=== PATIENT | female | born 1940 | race Caucasian/White ===

== ENCOUNTER → 2016-08-07 | Day surgery (SDC) | payer MEDICARE, BC ==
[~2016-08-07] MED LIST: Lactated Ringers 1,000 ML IV SCH; Propofol 200 MG/20 ML SDV IV ONE
[2016-08-07 10:31] VITALS: BP 146/83
--- NOTE | 2016-08-07 13:10 | OR ---
DATE OF OPERATION: 08/07/2016 PREOPERATIVE DIAGNOSIS: 1. RECURRENT GASTROESOPHAGEAL REFLUX DISEASE. 2. ABDOMINAL PAIN. POSTOPERATIVE DIAGNOSIS: 1. RECURRENT GASTROESOPHAGEAL REFLUX DISEASE. 2. ABDOMINAL PAIN. SURGEON: Lucian Harley MD PROCEDURE: 1. EGD WITH DANIEL. 2. FULL-LENGTH COLONOSCOPY. ANESTHESIA: PHONE TECHNICIAN due to chronic reflux, and anxiety. COMPLICATIONS: None. SPECIMEN: Antral DANIEL. FINDINGS: 1. Full-length EGD. 2. Recurrent hiatal hernia without esophagitis or Hamm's changes. 3. Full length colonoscopy. 4. Mild sigmoid diverticulosis. RECOMMENDATIONS: Medical follow up with Dr. Solano. INDICATIONS: The patient had a previous hiatal hernia repair. She apparently started to have some recurrent reflux and abdominal pain. Dr. Solano recommended upper and lower endoscopy. DESCRIPTION OF PROCEDURE: The patient was prepped and draped, placed in left lateral decubitus position. A lubricated Olympus gastroscope was inserted over a bit, and easily intubated in the esophagus without any complication. Esophageal lining was benign in its entire course. The Z-line was crisp at 38 cm. There was a recurrence of hiatal hernia, small at this time. No spontaneous reflux was seen. There was no distal esophagitis, stricturing, ulceration, or Hamm's changes. The scope was advanced into the stomach through the pylorus into the third portion of duodenum. The second and third portion of duodenum along with the duodenal bulb were unremarkable. The scope was brought back into the stomach and retroflexed. The upper fundus and cardia were unremarkable other than the hernia itself. Upon straightening thorough evaluation, the entire gastric lining was entertained. No signs of any peptic ulcer disease, polyp mass, or otherwise. A CLOtest was obtained. Air was suctioned from the stomach, and the scope was removed without complication. A lubricated Olympus colonoscope was then inserted and easily advanced to the cecum. Visualization of right and right lower quadrant along with palpation in the right lower quadrant was accomplished where we easily visualized the ileocecal valve. The bowel prep was adequate. Upon withdrawal of the scope, the entire colon was visualized adequately. There were no signs of any polyps, mass, ulceration, bleeding sites. No vascular abnormalities or signs of colitis. A few scattered diverticula in the mid sigmoid to the rectosigmoid area mild in severity. Rectal vault was unremarkable. Retroflexion showed no anal lesions. Air was then suctioned. Scope removed without complications. MARIFER/MOHIT /[id number]
== END ==
LOC: CC.SDS 08:34
PROVIDERS: ATTEND Family Medicine
DX: K57.30 Diverticulosis of large intestine without perforation or abscess without bleeding (principal); K44.9 Diaphragmatic hernia without obstruction or gangrene; Z88.2 Allergy status to sulfonamides
CPT/HCPCS: 00810; 43235; 45378; 87081; J2704; J7120

== ENCOUNTER 2021-04-24 06:36 | Emergency (ER) | payer MEDICARE, BC ==
[2021-04-24] MEDS ORDERED: GI Cocktail Oral Solution 30 ML PO ONE (07:38)
--- NOTE | 2021-04-24 07:38 | EDM.PDOC ---
ED HPI GENERAL MEDICAL PROBLEM - General Chief Complaint: General Stated Complaint: BOTTOM OF LUNGS HURT Time Seen by Provider: 04/24/21 07:20 Source of Information: Reports: Patient History Limitations: Reports: No Limitations - History of Present Illness INITIAL COMMENTS - FREE TEXT/NARRATIVE: This is an 80-year-old female patient that presents to the emergency department with onset of pressure b below bilateral breast area. States that she has had this type of pain before with a hernia. Also has complaints of a sore throat. Denies radiation of pain into the arms, neck, or back. States that she has been belching a lot this morning. States she is having regular stools with no noted black or bloody tinged. States that she is passing urine okay. Denies being short of breath, diaphoretic, or nauseated. States that she had a hiatal hernia repaired several years ago and then had a problem as it had ruptured, but this has not been a problem for several years now. The nurse says she called last night with an elevated blood pressure in the 140s systolic. Bilateral Lower Chest Pain Score (Numeric/FACES): 8 - Related Data Allergies Allergy/AdvReac Type Severity Reaction Status Date / Time Sulfa (Sulfonamide Allergy Hives Verified 08/07/16 09:01 Antibiotics) Home Meds: Home Meds Aspirin 325 mg PO BEDTIME 09/06/13 [History] Cholecalciferol (Vitamin D3) [Vitamin D3] 4,000 unit PO BEDTIME 09/06/13 [History] Losartan/Hydrochlorothiazide [Hyzaar 100-25] 1 tab PO DAILY 09/06/13 [History] Omeprazole 20 mg PO BID PRN 09/06/13 [History] Potassium Chloride [K-Tab ER] 20 meq PO BEDTIME 09/06/13 [History] Ubidecarenone [Co Q-10] 50 mg PO BEDTIME 09/06/13 [History] amLODIPine [Norvasc] 10 mg PO DAILY 09/06/13 [History] atorvaSTATin [Lipitor] 10 mg PO DAILY 09/06/13 [History] Docusate Sodium [Stool Softener] 100 mg PO BID 02/16/15 [History] Magnesium Oxide [Magnesium] 1 cap PO DAILY 04/21/16 [History] Mupirocin Cream [Bactroban Crm] 1 applic TOP TID 08/06/16 [History] Ranitidine [Zantac] 150 mg PO BEDTIME 08/06/16 [History] Sertraline [Zoloft] 0.5 tab PO ASDIRECTED 04/24/21 [History] Past Medical History Cardiovascular History: Reports: High Cholesterol, Hypertension Gastrointestinal History: Reports: Hiatal Hernia - Past Surgical History GI Surgical History: Reports: Cholecystectomy, EGD, Jeanette Fundoplication Female Surgical History: Reports: Section Social & Family History - Family History Family Medical History: No Pertinent Family History - Caffeine Use Caffeine Use: Reports: Coffee, Soda ED ROS GENERAL - Review of Systems Review Of Systems: See Below Constitutional: Reports: Chills ("Chills to legs"). Denies: Fever, Diaphoresis HEENT: Reports: Throat Pain Respiratory: Denies: Shortness of Breath, Wheezing, Cough Cardiovascular: Reports: Chest Pain (Chest pressure to bilateral lower chest) Endocrine: Reports: No Symptoms GI/Abdominal: Reports: Other ("Belching and burping"). Denies: Abdominal Pain, Black Stool, Bloody Stool, Constipation, Diarrhea, Decreased Appetite, Nausea, Vomiting : Reports: No Symptoms. Denies: Discharge, Dysuria, Flank Pain Musculoskeletal: Reports: No Symptoms Skin: Reports: No Symptoms Neurological: Reports: No Symptoms. Denies: Trouble Speaking Psychiatric: Reports: No Symptoms Hematologic/Lymphatic: Reports: No Symptoms Immunologic: Reports: No Symptoms ED EXAM, GENERAL - Physical Exam Exam: See Below Exam Limited By: No Limitations General Appearance: Alert, WD/WN, Anxious Ears: Normal External Exam, Hearing Grossly Normal Nose: Normal Inspection, Normal Mucosa, No Blood Throat/Mouth: Normal Inspection, Normal Gums, Normal Oropharynx, Normal Voice, No Airway Compromise Head: Atraumatic, Normocephalic Neck: Normal Inspection, Supple, Non-Tender Respiratory/Chest: No Respiratory Distress, Lungs Clear, Normal Breath Sounds Cardiovascular: Regular Rate, Rhythm, No Gallop, No Rub GI/Abdominal: Normal Bowel Sounds, Soft, Non-Tender, No Organomegaly, No Distention (Female) Exam: Deferred Rectal (Female) Exam: Deferred Extremities: Normal Inspection, No Pedal Edema Neurological: Alert, Oriented, Normal Cognition Psychiatric: Normal Affect, Normal Mood Skin Exam: Warm, Dry, Intact, No Rash Lymphatic: No Adenopathy #1 Interpretation EKG Date: 04/24/21 Time: 06:56 Rhythm: NSR [place]: Normal P-Wave: Present QRS: Normal ST-T: Normal QT: Normal Course - Orders/Labs/Meds Orders: Active Orders 24 hr Category Date Time Status Chest 2V [CR] Stat Exams 04/24/21 07:14 Ordered C-REACTIVE PROTEIN [CHEM] Stat Lab 04/24/21 07:15 Ordered CBC W/O DIFF,HEMOGRAM [HEME] Stat Lab 04/24/21 07:15 Ordered COMPREHENSIVE METABOLIC PN,CMP [CHEM] Stat Lab 04/24/21 07:15 Ordered D-DIMER QUANTITATIVE [COAG] Stat Lab 04/24/21 07:25 Ordered TROPONIN I HIGH SENSITIVITY [CHEM] Stat Lab 04/24/21 07:15 Ordered - Re-Assessments/Exams Free Text/Narrative Re-Assessment/Exam: This is a 80-year-old female patient that presented to the ER with bilateral lower chest pressure under the breast area. A CBC, CMP, CRP, troponin, D-dimer, Covid, and influenza was obtained. Covid and influenza are negative. The CBC was unremarkable. D-dimer was negative. CRP unremarkable. CMP indicated a potassium of 3.1. The patient is on a potassium supplement that she usually takes daily. An EKG was also performed and I personally reviewed this and see no obvious acute findings such as ST elevation or depression and shows a normal sinus rhythm. A two view chest x-ray was also obtained and reviewed the images and see no acute findings. With a potassium of 3.1 a 20 mEq potassium chloride tablet was administered by mouth in the ER. A GI cocktail is also administered for the bilateral chest discomfort. Patient has a history of hiatal hernia, and having symptoms of gastric reflux. The gastric reflux and indigestion is the most plausible cause of her chest discomfort. With the D-dimer being negative it would unlikely be a pulmonary embolism. Troponin being negative along with no obvious ST findings on EKG making MA unlikely. Plan to discharge home. Patient should resume all her previously prescribed medication. States that she is on Nexium. The patient could take an [id number] Tums or Maalox if needed. She was advised to track her blood pressures and write them down to take to her primary care provider as she noticed her blood pressure has been elevated today. Follow-up with your primary care provider in 1 week for potassium recheck and as needed or if symptoms return. If symptoms are worsening or if there are any questions she may return to the emergency department. Departure - Departure Time of Disposition: 08:20 Disposition: Home, Self-Care 01 Condition: Good Clinical Impression: Gastric reflux - Discharge Information *PRESCRIPTION DRUG MONITORING PROGRAM REVIEWED*: Not Applicable *COPY OF PRESCRIPTION DRUG MONITORING REPORT IN PATIENT ESTEPHANIA: Not Applicable Instructions: Gastroesophageal Reflux Disease, Adult Additional Instructions: 1. Continue all medications as prescribed. 2. Your potassium level was a little low today and you were given an additional potassium tablet in the emergency department. 3. May use an vysy-cra-skvtcis Tums or Maalox if needed for the indigestion and belching. 4. Monitor your blood pressures and write them down and take them to your primary care provider if they remain elevated. 5. Follow-up with your primary care provider in 1 week to have potassium level rechecked. 6. If symptoms worsen or if you have any concerns return to the emergency department. - My Orders Last 24 Hours: My Active Orders 04/24/21 07:14 Chest 2V [CR] Stat 04/24/21 07:15 C-REACTIVE PROTEIN [CHEM] Stat CBC W/O DIFF,HEMOGRAM [HEME] Stat COMPREHENSIVE METABOLIC PN,CMP [CHEM] Stat TROPONIN I HIGH SENSITIVITY [CHEM] Stat 04/24/21 07:25 D-DIMER QUANTITATIVE [COAG] Stat - Assessment/Plan Last 24 Hours: My Active Orders 04/24/21 07:14 Chest 2V [CR] Stat 04/24/21 07:15 C-REACTIVE PROTEIN [CHEM] Stat CBC W/O DIFF,HEMOGRAM [HEME] Stat COMPREHENSIVE METABOLIC PN,CMP [CHEM] Stat TROPONIN I HIGH SENSITIVITY [CHEM] Stat 04/24/21 07:25 D-DIMER QUANTITATIVE [COAG] Stat
[2021-04-24 07:40] LABS: CHLORIDE,CL 104 mEq/L (98-106); SODIUM,NA 139 mEq/L (136-145)
[2021-04-24] MEDS ORDERED: Alum Hydrox/Mag Hydrox/Simeth 30 ML, Lidocaine 2% 15 ML PO ONE ×2 (07:53)
[2021-04-24 07:57] LABS: CORONAVIRUS COVID-19 NAA NEGATIVE (NEGATIVE)
[2021-04-24] MEDS ORDERED: Potassium Chloride 10 MEQ Tab.ER PO STA (07:58)
[2021-04-24 07:59] VITALS: BP 155/80; PULSE 72
== END 2021-04-24 08:40 | disposition home or self-care (01) ==
LOC: CC.ED 06:36
DX: K21.9 Gastro-esophageal reflux disease without esophagitis (principal); E78.00 Pure hypercholesterolemia, unspecified; I10 Essential (primary) hypertension; Z88.2 Allergy status to sulfonamides; Z79.82 Long term (current) use of aspirin; Z79.899 Other long term (current) drug therapy; Z20.822 Contact with and (suspected) exposure to COVID-19
CPT/HCPCS: 0240U; 36415; 71046; 80053; 84484; 85027; 85379; 86140; 99285-25; A9270-GY